=== PATIENT | female | born 1990 | race American Indian/Alaskan Native ===

== ENCOUNTER 2018-06-23 15:51 | Outpatient (CLI) | payer BC, MEDICAID ==
[2018-06-23 16:49] VITALS: BP 107/66
== END 2018-06-23 16:58 | disposition home or self-care (01) ==
LOC: TRG 15:51
PROVIDERS: ATTEND Obstetrics & Gynecology
DX: O47.1 False labor at or after 37 completed weeks of gestation (principal); Z3A.40 40 weeks gestation of pregnancy
CPT/HCPCS: 59025

== ENCOUNTER 2018-07-02 13:04 | Outpatient (CLI) | payer MEDICAID ==
--- NOTE | 2018-07-02 15:19 | Ultrasound Report ---
ULTRASOUND BIOPHYSICAL PROFILE: History: BPP Technique: Transabdominal ultrasound with Doppler interrogation. 2 - breathing movements 2 - movements 2 - posture and tone 2 - Qualitative amniotic fluid volume 8 - TOTAL SCORE OF POSSIBLE 8 Heart Rate (bpm) 154
--- NOTE | 2018-07-02 15:19 | Ultrasound Report ---
ULTRASOUND OB LIMITED History: SOLOMON Technique: Transabdominal ultrasound with Doppler interrogation. Gestation: Single Position: Cephalic Amniotic Fluid: Normal SOLOMON = 13.1 cm Heart Rate: 154 BPM
== END 2018-07-02 15:28 | disposition home or self-care (01) ==
LOC: TRG 13:04
PROVIDERS: ATTEND Obstetrics & Gynecology
DX: O47.1 False labor at or after 37 completed weeks of gestation (principal); Z3A.41 41 weeks gestation of pregnancy
CPT/HCPCS: 59025; 76815; 76819

== ENCOUNTER 2018-07-06 06:05 | Inpatient (IN) | payer MEDICAID ==
[2018-07-06] MEDS ORDERED: LACTATED RINGERS 2,000 ML ONE (06:16)
[2018-07-06] MEDS ORDERED: BRETHINE IVP PRN (06:35)
[2018-07-06] MEDS ORDERED: XYLOCAINE 2% INFILTRATI ONE ×2 (06:35→16:49)
[2018-07-06] MEDS ORDERED: BRETHINE SUB-Q PRN (06:35)
[2018-07-06] MEDS ORDERED: MINERAL OIL PO PRN (06:35)
[2018-07-06] MEDS ORDERED: STADOL IV PRN (06:35)
[2018-07-06] MEDS ORDERED: SUBLIMAZE IV PRN (06:35)
[2018-07-06] MEDS ORDERED: LACTATED RINGERS 1,000 ML IV SCH (07:00)
[2018-07-06] MEDS ORDERED: PITOCin/NS 20 UNIT/1000ML DRIP 20 UNITS/1,000 ML BAG IV SCH (07:00)
[2018-07-06 07:02] LABS: Hematocrit 35.6 % (30.3-42.9); Hemoglobin 12.1 gm/dl (10.1-14.3); Mean Corpuscular HGB Conc 34 % (30-34); Mean Corpuscular Volume 88 fl (79-97); Platelet Count 308 K/mm3 (140-440); Red Blood Count 4.05 M/mm3 (3.65-5.03); Red Cell Distribution Width 14.3 % (13.2-15.2)
--- NOTE | 2018-07-06 09:11 | History and Physical Report ---
History of Present Illness Date of examination: 07/06/18 Date of admission: 07/06/18 06:05 Chief complaint: contractions History of present illness: 28y/o @ 42+0 weeks presents with regular uterine contractions. The patient initiated care @ 9 weeks ega. Her course is complicated by a prior delivery. The patient was scheduled for a repeat delivery on 07/01 but elected to attempt a trial of labor. Anatomical survey indicated findings of EIF however patient did not receive followup. She denies leakage of fluid. 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 GBS negative. Past History Past Medical History: no pertinent history Past Surgical History: section Social history: single - Obstetrical History Expected Date of Delivery: 06/22/18 Actual Gestation: 42 Week(s) 0 Day(s) : 2 Para: 1 Hx # Term Pregnancies: 1 Number of Pregnancies: 0 Spontaneous Abortions: 0 Induced : 0 Number of Living Children: 1 Medications and Allergies Allergies Allergy/AdvReac Type Severity Reaction Status Date / Time No Known Allergies Allergy Verified 11/01/17 13:32 Home Medications Medication Instructions Recorded Confirmed Last Taken Type Vit 90/Iron Fum/Folic 1 each PO QDAY #1 bottle 09/25/14 05/27/15 05/26/15 Rx [ Formula] 2000 Ferrous Sulfate [Feosol 325 MG tab] 325 mg PO BID #60 tablet 05/27/15 Unknown Rx Ibuprofen [Motrin 800 MG tab] 800 mg PO Q6H PRN #30 tablet 05/27/15 Unknown Rx oxyCODONE /ACETAMINOPHEN [Percocet 1 - 2 tab PO Q4H PRN #30 tablet 05/27/15 Unknown Rx 5/325 mg] Lidocain2.5%/Prilocai2.5% [Emla] 5 gm TP PRN #1 tube 05/28/15 Unknown Rx Metoclopramide [Reglan] 10 mg PO TID PRN #20 tab 11/01/17 Unknown Rx Active Meds: Active Medications Butorphanol Tartrate (Stadol) 2 mg IV Q2H PRN PRN Reason: Pain , Severe (7-10) Ephedrine Sulfate (Ephedrine Sulfate) 10 mg IV Q2M PRN PRN Reason: Hypotension Fentanyl (Sublimaze) 100 mcg IV Q2H PRN PRN Reason: Labor Pain Lactated Ringer's (Lactated Ringers) 1,000 mls @ 125 mls/hr IV DIRECT DANAY Oxytocin/Sodium Chloride (Pitocin/Ns 20 Unit/1000ml Drip) 20 units in 1,000 mls @ 125 mls/hr IV DIRECT DANAY Mineral Oil (Mineral Oil) 30 ml PO QHS PRN PRN Reason: Constipation Terbutaline Sulfate (Brethine) 0.25 mg SUB-Q ONCE PRN PRN Reason: Hyperstimulation/Hypertonicity Terbutaline Sulfate (Brethine) 0.25 mg IVP ONCE PRN PRN Reason: Hyperstimulation/Hypertonicity Review of Systems All systems: negative Genitourinary: contractions, no leakage of fluid - Vital Signs Vital signs: Vital Signs Pulse BP 92 H 119/64 07/06/18 06:28 07/06/18 06:28 Temp Pulse Resp BP Pulse Ox 101 H 109/59 97 07/06/18 08:41 07/06/18 08:41 07/06/18 07:56 - Physical Exam Breasts: Positive: deferred Cardiovascular: Regular rate Lungs: Positive: Clear to auscultation Abdomen: Positive: normal appearance - Obstetrical Cervical Dilatation: 5 Results Result Diagrams: 07/06/18 06:27 All other labs normal. Assessment and Plan - Patient Problems (1) Previous section Current Visit: Yes Status: Acute Plan to address problem: admit for trial of labor risks and benefits explained to patient (2) Active labor at term Current Visit: Yes Status: Acute (3) Post-term , 40-42 weeks of gestation Current Visit: Yes Status: Acute
[2018-07-06] MEDS ORDERED: PITOCin/NS 30 UNIT/500ML 30 UNITS/500 ML BAG IV SCH (10:00)
--- NOTE | 2018-07-06 14:14 | Event Note ---
Date: 07/06/18 Patient has progressed to an anterior lip. Pitocin currently at 6mIU. Internal monitors in place. Reassuring tracing
--- NOTE | 2018-07-06 17:03 | Procedure Note ---
OB Delivery Note - Delivery Date of Delivery: 07/06/18 Surgeon: SANDRO FLORES Estimated blood loss: 300cc - Vaginal Delivery presentation: vertex Delivery position: OA Intrapartum events: postterm- > or = 42 weeks Delivery augmentation: rupture of membranes, pitocin Delivery monitor: external FHT, external uterine, internal FHT, internal uterine Route of delivery: Delivery placenta: spontaneous Delivery cord: nuchal cord Episiotomy: none Delivery laceration: 2nd degree Delivery repair: vicryl Anesthesia: local Delivery comments: Patient progressed to C/C/+1 and pushed to deliver a liveborn female infant with apgars of 7/9. Infant weight of 7lbs 3oz. After delivery of the head, the shoulders delivered without difficulty. Nuchal cord x 1 was manually reduced. The cord was clamped and cut and infant placed on the patient's abdomen. The placenta delivered spontaneously intact with a 3VC. The patient sustained a midline 2nd degree laceration repaired with 2-0 vicryl after injection with lidocaine. EBL 300ml. - A at 1 minute: 7 at 5 minutes: 9 Infant Gender: Female (weight 7lbs 3oz)
[2018-07-06] MEDS ORDERED: ZOFRAN IV PRN (17:04)
[2018-07-06] MEDS ORDERED: BENADRYL PO PRN (17:04)
[2018-07-06] MEDS ORDERED: LANSINOH TP PRN (17:04)
[2018-07-06] MEDS ORDERED: NORCO 5/325 PO PRN (17:04)
[2018-07-06] MEDS ORDERED: CYTOTEC VG ONE (17:04)
[2018-07-06] MEDS ORDERED: TUCKS PAD TP PRN (17:04)
[2018-07-06] MEDS ORDERED: PHENERGAN PR PRN (17:04)
[2018-07-06] MEDS ORDERED: TYLENOL PO PRN (17:04)
[2018-07-06] MEDS ORDERED: DULCOLAX PR PRN (17:04)
[2018-07-06] MEDS ORDERED: MILK OF MAGNESIA PO PRN (17:04)
[2018-07-06] MEDS ORDERED: PHENERGAN PO PRN (17:04)
[2018-07-06] MEDS ORDERED: SODIUM CHLORIDE FLUSH SYRINGE 10 ML IV NR (18:00)
[2018-07-06] MEDS: IBUPROFEN PO SCH ×2 (18:04→23:52)
[2018-07-07] MEDS: IBUPROFEN PO SCH ×4 (05:11→23:34)
[2018-07-07 06:40] LABS: Hemoglobin 10.7 gm/dl (10.1-14.3)
--- NOTE | 2018-07-07 07:34 | Progress Note ---
Assessment and Plan A: PPD#1 s/p at term P: Routine care. Anticipate discharge tomorrow. Subjective - Subjective Date of service: 07/07/18 Principal diagnosis: s/p at term Interval history: Pt without complaints. Patient reports: appetite normal, voiding normally, pain well controlled, ambulating normally [place]: doing well Objective - Vital Signs Latest vital signs: Vital Signs Temp Pulse Resp BP Pulse Ox 07/07/18 04:46 98.7 F 88 16 107/63 94 07/06/18 23:10 98.4 F 88 18 110/47 96 07/06/18 19:58 98.0 F 75 16 121/40 98 07/06/18 19:09 98.7 F 16 07/06/18 18:51 71 116/55 07/06/18 14:42 81 128/68 07/06/18 14:25 98.7 F 18 07/06/18 14:13 66 107/55 07/06/18 12:15 98.3 F 18 07/06/18 11:42 83 124/56 07/06/18 10:41 88 118/59 07/06/18 10:23 98.4 F 18 07/06/18 10:20 70 125/57 07/06/18 09:53 88 128/57 07/06/18 08:41 101 H 109/59 07/06/18 07:56 88 97 07/06/18 07:51 91 H 93 07/06/18 07:46 83 89 07/06/18 07:45 80 92 07/06/18 07:41 83 97 07/06/18 07:40 77 94 07/06/18 07:36 93 H 97 Intake and Output 07/06/18 07/07/18 07/07/18 22:59 06:59 14:59 Intake Total 500 500 Output Total 150 1600 Balance 350 -1100 Intake: Oral 200 200 Intake, Free Water 300 300 Output: Urine 150 1600 Indwelling Catheter 150 Void 1600 Other: Total, Intake Amount 200 200 Total, Output Amount 150 800 # Voids Void 1 1 Estimated Blood Loss 300 - Exam Breasts: Present: deferred Cardiovascular: Present: Regular rate Lungs: Present: Clear to auscultation Abdomen: Present: soft Uterus: Present: fundal height at umbilicus Extremities: Present: edema (trace )
--- NOTE | 2018-07-07 07:37 | Discharge Summary ---
Providers - Providers Date of Admission: 07/06/18 06:05 Date of discharge: 07/08/18 Attending physician: SANDRO FLORES Primary care physician: TEMITOPE CHAUHAN Hospitalization Reason for admission: active labor Delivery: Procedure details: Please see operative note. Episiotomy: none Laceration: 2nd degree Other procedures: none complications: none Discharge diagnosis: IUP at term delivered [place] baby: female Hospital course: Pt was admitted in active labor and went on to have a which she tolerated well. Her course was uncomplicated and she met discharge criteria on PPD#2. She will follow up in the office in 4 wks. Condition at discharge: Stable Disposition: - TO HOME OR SELFCARE - Discharge Diagnoses (1) Active labor at term Status: Acute (2) Post-term , 40-42 weeks of gestation Status: Acute (3) Previous section Status: Acute (4) Active labor at term Status: Acute Plan - Discharge Medications Prescriptions: Ibuprofen [Motrin] 800 mg PO Q8HR PRN #30 tablet PRN Reason: Pain, Moderate (4-6) HYDROcodone/APAP 5-325 [[place] 5/325] 1 each PO Q6HR PRN #20 tablet PRN Reason: Pain - Provider Discharge Summary Activity: routine, no sex for 6 weeks, no heavy lifting 4 weeks, no strenuous exercise Diet: routine Instructions: routine Additional instructions: [] Smoking cessation referral if applicable(refer to patient education folder for contact #) [] Refer to [facility] Booklet Call your doctor immediately for: * Fever > 100.5 * Heavy vaginal bleeding ( >1 pad per hour) * Severe persistent headache * Shortness of breath * Reddened, hot, painful area to leg or breast * Drainage or odor from incision. * Keep incision clean and dry at all times and follow doctor's instructions regarding bathing/showering - Follow up plan Follow up: TEMITOPE CHAUHAN MD [Primary Care Provider] - 08/04/18 (Please call for appt )
[2018-07-08] MEDS: IBUPROFEN PO SCH ×2 (05:43→12:15)
[2018-07-08 18:02] VITALS: BP 112/65
== END 2018-07-08 15:00 | disposition home or self-care (01) | DRG 774 ==
LOC: APU 06:05 → LD 06:34 → OB 19:41
PROVIDERS: ADMIT Obstetrics & Gynecology; ATTEND Obstetrics & Gynecology
PROC: 10E0XZZ Delivery of Products of Conception, External Approach (ICD-10-PCS; principal; 2018-07-06)
PROC: 0KQM0ZZ Repair Perineum Muscle, Open Approach (ICD-10-PCS; 2018-07-06)
DX: O34.211 Maternal care for low transverse scar from previous cesarean delivery (principal); O98.52 Other viral diseases complicating childbirth; O48.0 Post-term pregnancy; O69.1XX0 Labor and delivery complicated by cord around neck, with compression, not applicable or unspecified; B00.9 Herpesviral infection, unspecified; O70.1 Second degree perineal laceration during delivery; Z3A.42 42 weeks gestation of pregnancy; Z37.0 Single live birth; Z79.899 Other long term (current) drug therapy
CPT/HCPCS: 36415; 85014; 85018; 85027; 86592; 86850; 86900; 86901; G0378; A6250; J0595; J2590; J3010; J7120

== ENCOUNTER 2021-04-04 01:33 | Emergency (ER) | payer MEDICAID, OTHER ==
--- NOTE | 2021-04-04 06:16 | Emergency Department Report ---
ED ENT HPI - General Chief complaint: Dental/Oral Stated complaint: TOOTHACHE Time Seen by Provider: 04/04/21 05:58 Source: patient Mode of arrival: Ambulatory Limitations: No Limitations - History of Present Illness MD complaint: tooth pain -: Gradual, days(s) (3) Time: 03:00 1 - Dentalgia erosion with some caries present pain and erythema Severity: mild, moderate Quality: dull Consistency: constant Improves with: none Worsens with: none Associated Symptoms: toothache - Related Data Previous Rx's Medication Instructions Recorded Last Taken Type Vit 90/Iron Fum/Folic 1 each PO QDAY #1 bottle 09/25/14 05/26/15 Rx [ Formula] 2000 Ferrous Sulfate [Feosol 325 MG tab] 325 mg PO BID #60 tablet 05/27/15 Unknown Rx Ibuprofen [Motrin 800 MG tab] 800 mg PO Q6H PRN #30 tablet 05/27/15 Unknown Rx oxyCODONE /ACETAMINOPHEN [Percocet 1 - 2 tab PO Q4H PRN #30 tablet 05/27/15 Unknown Rx 5/325 mg] Lidocain2.5%/Prilocai2.5% [Emla] 5 gm TP PRN #1 tube 05/28/15 Unknown Rx Metoclopramide [Reglan] 10 mg PO TID PRN #20 tab 11/01/17 Unknown Rx HYDROcodone/APAP 5-325 [[place] 1 each PO Q6HR PRN #20 tablet 07/07/18 Unknown Rx 5/325] Ibuprofen [Motrin] 800 mg PO Q8HR PRN #30 tablet 07/07/18 Unknown Rx Amoxicillin [Amoxicillin TAB] 875 mg PO BID #20 tablet 04/04/21 Unknown Rx Chlorhexidine Mouthwash [Peridex] 15 ml MM BID #1 bottle 04/04/21 Unknown Rx Ketorolac [Toradol] 10 mg PO Q6H PRN #15 tablet 04/04/21 Unknown Rx Lidocaine Viscous 2% 5 ml MM Q3H PRN #120 udc 04/04/21 Unknown Rx Allergies Allergy/AdvReac Type Severity Reaction Status Date / Time No Known Allergies Allergy Verified 11/01/17 13:32 ED Dental HPI - General Chief complaint: Dental/Oral Stated complaint: TOOTHACHE Time Seen by Provider: 04/04/21 05:58 Source: patient Mode of arrival: Ambulatory Limitations: No Limitations - Related Data Previous Rx's Medication Instructions Recorded Last Taken Type Vit 90/Iron Fum/Folic 1 each PO QDAY #1 bottle 09/25/14 05/26/15 Rx [ Formula] 2000 Ferrous Sulfate [Feosol 325 MG tab] 325 mg PO BID #60 tablet 05/27/15 Unknown Rx Ibuprofen [Motrin 800 MG tab] 800 mg PO Q6H PRN #30 tablet 05/27/15 Unknown Rx oxyCODONE /ACETAMINOPHEN [Percocet 1 - 2 tab PO Q4H PRN #30 tablet 05/27/15 Unknown Rx 5/325 mg] Lidocain2.5%/Prilocai2.5% [Emla] 5 gm TP PRN #1 tube 05/28/15 Unknown Rx Metoclopramide [Reglan] 10 mg PO TID PRN #20 tab 11/01/17 Unknown Rx HYDROcodone/APAP 5-325 [[place] 1 each PO Q6HR PRN #20 tablet 07/07/18 Unknown Rx 5/325] Ibuprofen [Motrin] 800 mg PO Q8HR PRN #30 tablet 07/07/18 Unknown Rx Amoxicillin [Amoxicillin TAB] 875 mg PO BID #20 tablet 04/04/21 Unknown Rx Chlorhexidine Mouthwash [Peridex] 15 ml MM BID #1 bottle 04/04/21 Unknown Rx Ketorolac [Toradol] 10 mg PO Q6H PRN #15 tablet 04/04/21 Unknown Rx Lidocaine Viscous 2% 5 ml MM Q3H PRN #120 udc 04/04/21 Unknown Rx Allergies Allergy/AdvReac Type Severity Reaction Status Date / Time No Known Allergies Allergy Verified 11/01/17 13:32 ED Review of Systems ROS: Stated complaint: TOOTHACHE Other details as noted in HPI Comment: All other systems reviewed and negative ED Past Medical Hx - Past Medical History Previous Medical History?: No Hx Hypertension: No Hx Congestive Heart Failure: No Hx Diabetes: No Hx Deep Vein Thrombosis: No Hx Renal Disease: No Hx Sickle Cell Disease: No Hx Seizures: No Hx Asthma: No Hx COPD: No Hx HIV: No - Surgical History Past Surgical History?: Yes Additional Surgical History: C SECTION - Social History Smoking Status: Never Smoker - Medications Home Medications: Home Medications Medication Instructions Recorded Confirmed Last Taken Type Vit 90/Iron Fum/Folic 1 each PO QDAY #1 bottle 09/25/14 07/06/1805/25 Rx [ Formula] 2000 Ferrous Sulfate [Feosol 325 MG tab] 325 mg PO BID #60 tablet 05/27/15 07/06/18 Unknown Rx Ibuprofen [Motrin 800 MG tab] 800 mg PO Q6H PRN #30 tablet 05/27/15 07/06/18 Unknown Rx oxyCODONE /ACETAMINOPHEN [Percocet 1 - 2 tab PO Q4H PRN #30 tablet 05/27/1506/23 Unknown Rx 5/325 mg] Lidocain2.5%/Prilocai2.5% [Emla] 5 gm TP PRN #1 tube 05/28/15 07/06/18 Unknown Rx Metoclopramide [Reglan] 10 mg PO TID PRN #20 tab 11/01/17 07/06/18 Unknown Rx HYDROcodone/APAP 5-325 [[place] 1 each PO Q6HR PRN #20 tablet 07/07/18 Unknown Rx 5/325] Ibuprofen [Motrin] 800 mg PO Q8HR PRN #30 tablet 07/07/18 Unknown Rx Amoxicillin [Amoxicillin TAB] 875 mg PO BID #20 tablet 04/04/21 Unknown Rx Chlorhexidine Mouthwash [Peridex] 15 ml MM BID #1 bottle 04/04/21 Unknown Rx Ketorolac [Toradol] 10 mg PO Q6H PRN #15 tablet 04/04/21 Unknown Rx Lidocaine Viscous 2% 5 ml MM Q3H PRN #120 udc 04/04/21 Unknown Rx ED Physical Exam - General Limitations: No Limitations General appearance: alert, in no apparent distress - Head Head exam: Present: atraumatic, normocephalic - Eye Eye exam: Present: normal appearance, EOMI Pupils: Present: normal accommodation - ENT ENT exam: Present: normal exam, mucous membranes moist, other (Dental caries noted with some adjacent erythema. Airway patent patent tongue uvula midline) - Neck Neck exam: Present: normal inspection, full ROM - Respiratory Respiratory exam: Present: normal lung sounds bilaterally. Absent: respiratory distress, wheezes, rales, rhonchi, accessory muscle use, decreased breath sounds - Cardiovascular Cardiovascular Exam: Present: regular rate, normal rhythm. Absent: systolic murmur, diastolic murmur, rubs, gallop - GI/Abdominal GI/Abdominal exam: Present: soft, normal bowel sounds - Extremities Exam Extremities exam: Present: normal inspection - Back Exam Back exam: Present: normal inspection, full ROM. Absent: CVA tenderness (R), CVA tenderness (L) - Neurological Exam Neurological exam: Present: alert, oriented X3, CN II-XII intact - Psychiatric Psychiatric exam: Present: normal affect, normal mood - Skin Skin exam: Present: warm, dry, intact, normal color. Absent: rash ED Course Vital Signs 04/04/21 01:36 Temperature 98.4 F Pulse Rate 81 Respiratory 18 Rate Blood Pressure 117/77 O2 Sat by Pulse 98 Oximetry Critical care attestation.: If time is entered above; I have spent that time in minutes in the direct care of this critically ill patient, excluding procedure time. ED Disposition Clinical Impression: Infected dental caries Disposition: HOME / SELF CARE / HOMELESS Is pt being admited?: No Does the pt Need Aspirin: No Condition: Stable Instructions: Dental Abscess, [id number] Additional Instructions: Please be sure to follow-up with the [facility] for further treatment of your condition Prescriptions: Amoxicillin [Amoxicillin TAB] 875 mg PO BID #20 tablet Lidocaine Viscous 2% 5 ml MM Q3H PRN #120 udc PRN Reason: Pain, Moderate (4-6) Chlorhexidine Mouthwash [Peridex] 15 ml MM BID #1 bottle Ketorolac [Toradol] 10 mg PO Q6H PRN #15 tablet PRN Reason: Pain Referrals: [facility] [Other] - 3-5 Days [facility] [Outside] - 3-5 Days
[2021-04-04] MEDS ORDERED: HYDROcodone/ACETAMINOPHEN 5-325 MG TAB PO STA (06:25)
[2021-04-04 06:43] VITALS: BP 121/77
== END 2021-04-04 06:43 | disposition home or self-care (01) ==
LOC: ED 01:33
DX: K02.9 Dental caries, unspecified (principal); Z98.890 Other specified postprocedural states; Z79.899 Other long term (current) drug therapy
CPT/HCPCS: 99282